=== PATIENT | female | born 1985 | race Hispanic/Latino ===

== ENCOUNTER 2017-02-22 19:02 | Emergency (ER) | payer OTHER, SELFPAY | END 2017-02-22 20:00 | disposition home or self-care (01) | LOC: ERS 19:02 | DX: B34.9 Viral infection, unspecified (principal); J45.909 Unspecified asthma, uncomplicated; F41.9 Anxiety disorder, unspecified | CPT/HCPCS: 99283 ==

== ENCOUNTER 2017-07-12 09:41 | Emergency (ER) | payer SELFPAY | END 2017-07-12 11:08 | disposition home or self-care (01) | LOC: ERS 09:41 | DX: J20.9 Acute bronchitis, unspecified (principal); J45.20 Mild intermittent asthma, uncomplicated; F41.9 Anxiety disorder, unspecified | CPT/HCPCS: 99283 ==

== ENCOUNTER 2018-03-08 19:58 | Emergency (ER) | payer BC, SELFPAY ==
[2018-03-08] MEDS ORDERED: Albuterol Sulfate 2.5 mg/3 ml Neb ONE ×2 (21:26→21:36)
[2018-03-08] MEDS ORDERED: Dexamethasone 10 MG/ML VIAL ONE (21:44)
--- NOTE | 2018-03-08 21:56 | RAD ---
TWO VIEWS CHEST: Date: 03-08-18 Comparison: Asthma exacerbation. FINDINGS: There is no pneumothorax, pleural fluid, focal consolidation or alveolar edema. Heart and mediastinal contours unremarkable. IMPRESSION: No acute findings. POS: [facility]
== END 2018-03-08 22:35 | disposition home or self-care (01) ==
LOC: ERS 19:58
DX: J45.901 Unspecified asthma with (acute) exacerbation (principal); F41.9 Anxiety disorder, unspecified; Z79.899 Other long term (current) drug therapy; Z79.51 Long term (current) use of inhaled steroids
CPT/HCPCS: 71046; 94640; J1100; J7611

== ENCOUNTER 2019-05-13 08:27 | Outpatient (CLI) | payer BC ==
--- NOTE | 2019-05-13 08:52 | ULT ---
RIGHT UPPER QUADRANT ULTRASOUND: HISTORY: Right upper quadrant pain. FINDINGS: The liver, pancreas, and right kidney appear normal. No shadowing gallstones, gallbladder wall thick ening, or pericholecystic fluid is seen. The common duct measures 4 mm in diameter. There are 2 non shadowing echogenic foci arising from the wall of the gallbladder consistent with polyps, each measur ing 0.5 cm. No free fluid is seen in the Morison's pouch. IMPRESSION: Gallbladder polyps. POS: [facility]
== END 2019-05-13 08:28 | disposition home or self-care (01) ==
LOC: BICULT 08:27
PROVIDERS: ATTEND Physician Assistant
DX: R10.11 Right upper quadrant pain (principal); K82.4 Cholesterolosis of gallbladder
CPT/HCPCS: 76705

== ENCOUNTER 2020-07-20 19:42 | Emergency (ER) | payer BC ==
[2020-07-20] MEDS ORDERED: Mag-Al 1200 mg/1200 mg/30 ML UDCUP ONE (20:29)
[2020-07-20] MEDS ORDERED: Lidocaine Viscous Sol 2% 15 ml UD Cup ONE (20:29)
[2020-07-20 21:08] LABS: #Eosinphils 0.1 thou/uL (0.0-0.7); #Lymphocytes 3.2 thou/uL (1.20-3.40); #Monocytes 0.4 thou/uL (0.11-0.59); #Neutrophils 4.5 thou/uL (1.40-6.50); %Basophils 0.5 % (0.0-1.0); %Eosinophils 1.3 % (0.0-10.0); %Lymphocytes 38.6 % (21.0-51.0); %Monocytes 4.6 % (0.0-10.0); %Neutrophils 55.1 % (42.0-75.0); Hemoglobin 14.8 g/dL (12.0-16.0); Mean Corpuscular HGB CONC 36.5 g/dL (32.0-36.0); Mean Corpuscular Hemoglobin 33.2 pg (27.0-31.0); Mean Corpuscular Volume 90.9 fL (78.0-98.0); Mean Platelet Volume 7.2 fL (7.4-10.4); Platelet Count 289 thou/uL (130-400); RBC Distribution Width 11.5 % (11.5-14.5); Red Blood Cell (RBC) Count 4.45 mill/uL (4.20-5.40); White Blood Cell (WBC) Count 8.2 thou/uL (4.8-10.8)
[2020-07-20 21:37] LABS: ALT (SGPT) 39 U/L (8-55); AST (SGOT) 29 U/L (5-34); Albumin 4.2 g/dL (3.5-5.0); Alkaline Phosphatase 83 U/L (40-110); Anion Gap 14 mmol/L (10-20); BUN (Urea Nitrogen) 11 mg/dL (7.0-18.7); Bilirubin, Total 0.5 mg/dL (0.2-1.2); Calc. Creatinine Clearance 0 mL/min (70-130); Calcium 9.3 mg/dL (7.8-10.44); Carbon Dioxide 26 mmol/L (22-29); Chloride 103 mmol/L (98-107); Globulin 3.2 g/dL (2.4-3.5); Glucose 104 mg/dL (70-105); Lipase 31 U/L (8-78); Potassium 3.5 mmol/L (3.5-5.1); Protein, Total 7.4 g/dL (6.0-8.3); Sodium 139 mmol/L (136-145)
== END 2020-07-20 22:15 | disposition home or self-care (01) ==
LOC: ERS 19:42
DX: K21.9 Gastro-esophageal reflux disease without esophagitis (principal); I10 Essential (primary) hypertension; Z79.899 Other long term (current) drug therapy
CPT/HCPCS: 36415; 71045; 80053; 83690; 84484; 85025; 93005

== ENCOUNTER 2020-08-12 15:28 | Emergency (ER) | payer BC ==
[2020-08-13 00:14] LABS: SARS-CoV-2 PCR by NAA Not Detected (NotDetected)
== END 2020-08-12 17:00 | disposition home or self-care (01) ==
LOC: ERS 15:28
DX: R53.1 Weakness (principal); R06.02 Shortness of breath; Z20.822 Contact with and (suspected) exposure to COVID-19; I10 Essential (primary) hypertension; K21.9 Gastro-esophageal reflux disease without esophagitis; Z79.899 Other long term (current) drug therapy
CPT/HCPCS: 99284; U0003; U0005

== ENCOUNTER 2021-02-14 16:30 | Outpatient (CLI) | payer BC | END 2021-02-14 16:31 | disposition home or self-care (01) | LOC: SLEEPLAB 16:30 | PROVIDERS: ATTEND Family Medicine | DX: G47.9 Sleep disorder, unspecified (principal); G47.33 Obstructive sleep apnea (adult) (pediatric); R06.83 Snoring; J45.909 Unspecified asthma, uncomplicated; R51.9 Headache, unspecified; G47.00 Insomnia, unspecified | CPT/HCPCS: 95806 ==

== ENCOUNTER 2021-10-18 16:08 | Emergency (ER) | payer BC ==
[2021-10-18] MEDS ORDERED: Aspirin Chewable 81 MG TAB ONE (16:31)
[2021-10-18 16:34] LABS: #Eosinphils 0.1 thou/uL (0.0-0.7); #Lymphocytes 3.1 thou/uL (1.20-3.40); #Monocytes 0.5 thou/uL (0.11-0.59); %Basophils 0.1 % (0.0-1.0); %Eosinophils 1.9 % (0.0-10.0); %Lymphocytes 40.4 % (21.0-51.0); %Neutrophils 51.6 % (42.0-75.0); Hemoglobin 14.1 g/dL (12.0-16.0); Mean Corpuscular HGB CONC 36.4 g/dL (32.0-36.0); Mean Corpuscular Hemoglobin 32.1 pg (27.0-31.0); Mean Corpuscular Volume 88.2 fL (78.0-98.0); Mean Platelet Volume 7.2 fL (7.4-10.4); Platelet Count 269 thou/uL (130-400); RBC Distribution Width 11.7 % (11.5-14.5); White Blood Cell (WBC) Count 7.7 thou/uL (4.8-10.8)
[2021-10-18] MEDS ORDERED: Ketorolac Tromethamine 30 MG/ML VIAL ONE (16:42)
[2021-10-18 16:47] LABS: BHCG - Serum Negative (NEGATIVE); Pregs Control Background? CLEAR/WHITE (CLR/WHITE); Pregs Control Bar Appear? YES (CONTROL BAR)
[2021-10-18 17:16] LABS: ALT (SGPT) 43 U/L (8-55); AST (SGOT) 39 U/L (5-34); Alkaline Phosphatase 72 U/L (40-110); Anion Gap 13 mmol/L (10-20); BUN (Urea Nitrogen) 13 mg/dL (7.0-18.7); Bilirubin, Total 0.5 mg/dL (0.2-1.2); Calc. Creatinine Clearance 0 mL/min (70-130); Calcium 8.9 mg/dL (7.8-10.44); Carbon Dioxide 25 mmol/L (22-29); Chloride 103 mmol/L (98-107); Estimated GFR 94; Globulin 3.4 g/dL (2.4-3.5); Glucose 137 mg/dL (70-105); Protein, Total 7.4 g/dL (6.0-8.3); Sodium 137 mmol/L (136-145)
[2021-10-18 17:46] LABS: Bilirubin Negative (Negative); Blood, Urine Negative (Negative); Clarity Clear (Clear); Glucose, Urine (Dipstick) Normal (Negative); Ketone, Urine Negative (Negative); Leukocyte Negative Leu/uL (Negative); Nitrite Negative (Negative); Protein, Urine (Dipstick) Negative (Neg-Trace); Specific Gravity, Urine 1.014 (1.002-1.036); Urobilinogen Normal mg/dL (Less than 2)
[2021-10-18 18:57] LABS: Troponin I Less than 0.010 ng/mL (< 0.028)
== END 2021-10-18 19:13 | disposition home or self-care (01) ==
LOC: ERS 16:08
DX: R07.9 Chest pain, unspecified (principal); J45.909 Unspecified asthma, uncomplicated; I10 Essential (primary) hypertension; K21.9 Gastro-esophageal reflux disease without esophagitis; Z79.899 Other long term (current) drug therapy; Z79.51 Long term (current) use of inhaled steroids
CPT/HCPCS: 36415; 71045; 80053; 81003; 83690; 84484; 84703; 85025; 85379; 93005; 94760; 96374; J1885

== ENCOUNTER 2022-02-14 10:25 | Emergency (ER) | payer BC | END 2022-02-14 12:13 | disposition home or self-care (01) | LOC: ERS 10:25 | DX: U07.1 COVID-19 (principal); J12.82 Pneumonia due to coronavirus disease 2019; K21.9 Gastro-esophageal reflux disease without esophagitis; I10 Essential (primary) hypertension; Z79.899 Other long term (current) drug therapy | CPT/HCPCS: 71045 ==

== ENCOUNTER 2024-03-08 23:53 | Emergency (ER) | payer OTHER ==
[2024-03-09] MEDS ORDERED: Ketorolac Tromethamine 30 MG (1 mL) VIAL ONE (01:23)
[2024-03-09] MEDS ORDERED: predniSONE 20 MG TAB ONE (01:30)
== END 2024-03-09 02:19 | disposition home or self-care (01) ==
LOC: ERS 23:53
DX: B34.9 Viral infection, unspecified (principal); I10 Essential (primary) hypertension; Z55.0 Illiteracy and low-level literacy
CPT/HCPCS: 87428; 96372; 99283; J1885; J7512

== ENCOUNTER 2024-10-01 10:46 | Outpatient (CLI) | payer BC | END 2024-10-01 10:47 | disposition home or self-care (01) | LOC: ULT 10:46 | PROVIDERS: ATTEND Nurse Practitioner Family | DX: K80.20 Calculus of gallbladder without cholecystitis without obstruction (principal); K76.0 Fatty (change of) liver, not elsewhere classified | CPT/HCPCS: 76705 ==

== ENCOUNTER 2024-10-27 20:11 | Emergency (ER) | payer BC ==
[2024-10-27] MEDS ORDERED: Acetaminophen 500 MG TAB ONE (20:49)
== END 2024-10-27 21:30 | disposition home or self-care (01) ==
LOC: ERS 20:11
DX: U07.1 COVID-19 (principal); R11.0 Nausea; I10 Essential (primary) hypertension
CPT/HCPCS: 71045; 87081; 87428; 87430; Q0162